=== PATIENT | male | born 1965 | race African-American/Black ===

== ENCOUNTER 2024-03-28 13:12 | Inpatient (IN) | payer OTHER ==
[2024-03-28 14:27] LABS: VENOUS BASE EXCESS -0.6 mmol/L (-2-2); VENOUS O2 SATURATION 76.5 % (70-80); VENOUS PCO2 43.7 mmHg (38-52); VENOUS PH 7.373 (7.310-7.410)
[2024-03-28 14:32] LABS: BASO % 1.1 % (0-2.0); EOS % 2.9 % (0-4.5); HEMOGLOBIN 15.5 GM/dL (11.7-16.9); LYMPH % 26.5 % (8-40); MCH 32.3 pg (25.7-33.7); MCHC 32.3 g/dl (32.0-35.9); MEAN CELL VOLUME 99.9 fl (80-96); NEUT % 55.5 % (42.8-82.8); PLATELET COUNT 207 10^3/uL (134-434); RBC 4.81 M/mm3 (4.00-5.60); RDW 13.8 % (11.9-15.9); WHITE BLOOD COUNT 6.7 K/mm3 (4.0-10.0)
[2024-03-28 14:38] LABS: INR 1.04 (0.83-1.09); PROTHROMBIN TIME (PATIENT) 11.7 SEC (9.7-13.0)
[2024-03-28 14:55] LABS: POTASSIUM 4.1 mmol/L (3.5-5.1)
[2024-03-28 14:57] LABS: CALCIUM 9.2 mg/dL (8.5-10.1)
[2024-03-28 14:58] LABS: ALBUMIN 3.1 g/dl (3.4-5.0); BLOOD UREA NITROGEN 31.1 mg/dL (7-18)
[2024-03-28 15:01] LABS: CREATININE 1.6 mg/dL (0.55-1.3)
[2024-03-28 15:02] LABS: BILIRUBIN,TOTAL 0.8 mg/dL (0.2-1); TOT PROT 6.2 g/dl (6.4-8.2)
[2024-03-28 15:06] LABS: N-TERMINAL BNP 5751.1 pg/ml (5-125)
[2024-03-28] MEDS: ASPIRIN 325 MG TABLET PO ONE (16:06)
[2024-03-28] MEDS ORDERED: ASPIRIN 81 MG CHEWABLE TABLETS ONE (16:06)
[2024-03-28] MEDS ORDERED: FUROSEMIDE 40 MG/4 ML INJECTABLE VIAL ONE (17:09)
[2024-03-28] MEDS: FUROSEMIDE 40 MG/4 ML INJECTABLE VIAL IVPUSH ONE (17:10)
[2024-03-28] MEDS ORDERED: CARVEDILOL 6.25 MG TABLET (FP) ONE (20:48)
[2024-03-28] MEDS: CARVEDILOL 12.5 MG TABLET (FP) PO ONE (20:51)
[2024-03-29] MEDS ORDERED: ALBUTEROL SO4 2.5/IPRATROPIUM 0.5 INH SOL 3 ML VIAL.NEB. NEB PRN (05:50)
[2024-03-29] MEDS ORDERED: HEPARIN NA (PORCINE) 5,000 UNITS/ML 1ML VIAL SQ SCH (06:00)
[2024-03-29] MEDS: HEPARIN NA (PORCINE) 5,000 UNITS/ML 1ML VIAL SQ SCH (06:22)
[2024-03-29 07:04] LABS: HEMATOCRIT 47.6 % (35.4-49); HEMOGLOBIN 15.3 GM/dL (11.7-16.9); MCH 32.3 pg (25.7-33.7); MCHC 32.2 g/dl (32.0-35.9); MEAN CELL VOLUME 100.4 fl (80-96); PLATELET COUNT 207 10^3/uL (134-434); RBC 4.74 M/mm3 (4.00-5.60); RDW 13.6 % (11.9-15.9); WHITE BLOOD COUNT 6.4 K/mm3 (4.0-10.0)
[2024-03-29 07:32] LABS: ALBUMIN 3.1 g/dl (3.4-5.0); BLOOD UREA NITROGEN 29.9 mg/dL (7-18); CALCIUM 8.6 mg/dL (8.5-10.1)
[2024-03-29 07:33] LABS: MAGNESIUM 2.2 mg/dL (1.8-2.4)
[2024-03-29 07:34] LABS: BILIRUBIN,TOTAL 0.7 mg/dL (0.2-1)
[2024-03-29 07:35] LABS: CREATININE 1.6 mg/dL (0.55-1.3); PHOSPHOROUS 5.4 mg/dL (2.5-4.9)
[2024-03-29 07:36] LABS: TOT PROT 6.3 g/dl (6.4-8.2)
[2024-03-29 08:56] LABS: COCAINE, UR NEGATIVE (NEGATIVE); URINE BARBITURATES NEGATIVE (NEGATIVE); URINE BENZODIAZEPINES NEGATIVE (NEGATIVE)
[2024-03-29 08:57] LABS: OPIATES, URI NEGATIVE (NEGATIVE)
[2024-03-29 09:10] LABS: PHENCYCLIDINE,URINE POSITIVE (NEGATIVE); URINE AMPHETAMINES NEGATIVE (NEGATIVE)
[2024-03-29 09:55] LABS: METHADONE, UR NEGATIVE (NEGATIVE)
[2024-03-29] MEDS ORDERED: ASPIRIN COATED 81 MG TABLET.EC PO SCH (10:00)
[2024-03-29] MEDS: predniSONE 20 MG TABLET (UD) PO SCH (10:19)
[2024-03-29] MEDS: ASPIRIN COATED 81 MG TABLET.EC PO SCH (10:19)
[2024-03-29] MEDS: TAMSULOSIN HCL 0.4 MG CAP PO SCH (10:19)
[2024-03-29] MEDS: SPIRONOLACTONE 25 MG TABLET PO SCH (10:19)
[2024-03-29] MEDS: NICOTINE 7 MG/24 HOURS TOPICAL PATCH TD SCH (10:19)
[2024-03-29] MEDS: SACUBITRIL/VALSARTAN 49 MG-51 MG TABLET PO SCH (10:20)
[2024-03-29] MEDS: BUDESONIDE/FORMETEROL FUMARATE 80/4.5 mcg INHALER IH SCH (10:20)
[2024-03-29] MEDS: FUROSEMIDE 40 MG/4 ML INJECTABLE VIAL IVPUSH SCH (10:20)
[2024-03-29 12:56] VITALS: BMI 31.0
[2024-03-29] MEDS: methylPREDNISolone NA SUCC 40 MG/1 ML VIAL IVPUSH SCH (13:12)
[2024-03-29] MEDS: FLUTICASONE/UMECLIDIN/VILANTER(100-62.5-25 TRELEGY ELLIPTA) INAHLER IH SCH (13:12)
[2024-03-29] MEDS: ENOXAPARIN NA (PORCINE) 100 MG/1 ML DISP.SYRIN SQ SCH (13:17)
[2024-03-29] MEDS: ATORVASTATIN CA 80 MG TABLET (FP) PO SCH (21:32)
[2024-03-30] MEDS: CARVEDILOL 25 MG TABLET (FP) PO SCH (09:23)
[2024-03-30] MEDS: FUROSEMIDE 40 MG TABLET (FP) PO SCH (09:34)
[2024-03-30 10:07] LABS: HEMATOCRIT 51.4 % (35.4-49); HEMOGLOBIN 16.3 GM/dL (11.7-16.9); MCH 31.8 pg (25.7-33.7); MCHC 31.8 g/dl (32.0-35.9); MEAN PLT VOLUME 8.8 fl (7.5-11.1); PLATELET COUNT 232 10^3/uL (134-434); RBC 5.14 M/mm3 (4.00-5.60); RDW 13.3 % (11.9-15.9); WHITE BLOOD COUNT 20.3 K/mm3 (4.0-10.0)
[2024-03-30] MEDS ORDERED: NICOTINE 7 MG/24 HOURS TOPICAL PATCH TD SCH (10:20)
[2024-03-30] MEDS: NICOTINE 14 MG/24 HOURS TOPICAL PATCH TD SCH (10:36)
[2024-03-30 10:37] LABS: POTASSIUM 4.4 mmol/L (3.5-5.1)
[2024-03-30 10:40] LABS: BLOOD UREA NITROGEN 26.2 mg/dL (7-18); CALCIUM 9.2 mg/dL (8.5-10.1); MAGNESIUM 2.2 mg/dL (1.8-2.4)
[2024-03-30 10:43] LABS: CREATININE 1.6 mg/dL (0.55-1.3); PHOSPHOROUS 2.8 mg/dL (2.5-4.9)
[2024-03-30 10:44] LABS: BILIRUBIN,TOTAL 0.7 mg/dL (0.2-1); TOT PROT 6.3 g/dl (6.4-8.2)
[2024-03-31 07:39] LABS: HEMATOCRIT 51.5 % (35.4-49); HEMOGLOBIN 16.2 GM/dL (11.7-16.9); MCH 31.6 pg (25.7-33.7); MCHC 31.5 g/dl (32.0-35.9); MEAN CELL VOLUME 100.5 fl (80-96); MEAN PLT VOLUME 9.9 fl (7.5-11.1); PLATELET COUNT 247 10^3/uL (134-434); RBC 5.13 M/mm3 (4.00-5.60); RDW 13.6 % (11.9-15.9); WHITE BLOOD COUNT 16.5 K/mm3 (4.0-10.0)
[2024-03-31 08:03] LABS: POTASSIUM 4.9 mmol/L (3.5-5.1)
[2024-03-31 08:23] LABS: ALBUMIN 3.1 g/dl (3.4-5.0); BLOOD UREA NITROGEN 31.9 mg/dL (7-18); CALCIUM 9.2 mg/dL (8.5-10.1); MAGNESIUM 2.2 mg/dL (1.8-2.4)
[2024-03-31 08:26] LABS: CREATININE 1.5 mg/dL (0.55-1.3); PHOSPHOROUS 2.4 mg/dL (2.5-4.9)
[2024-03-31 08:27] LABS: BILIRUBIN,TOTAL 0.4 mg/dL (0.2-1); TOT PROT 6.1 g/dl (6.4-8.2)
[2024-03-31] MEDS: NAPH,MB-DB/K PH,MBDB POWDER PACKET PO ONE (09:26)
[2024-04-01] MEDS: amLODIPine BESYLATE 5 MG TABLET (FP) PO SCH (10:46)
[2024-04-01] MEDS: ENOXAPARIN NA (PORCINE) 40 MG/0.4 ML DISP.SYRIN SQ SCH (18:37)
[2024-04-01] MEDS: ACETAMINOPHEN 500 MG TABLET (FP) PO ONE (21:43)
[2024-04-01 23:43] VITALS: RESP 18
[2024-04-02 06:50] VITALS: BP 140/106; TEMP 97.2
[2024-04-02 08:15] LABS: HEMATOCRIT 49.4 % (35.4-49); HEMOGLOBIN 16.3 GM/dL (11.7-16.9); MCH 32.7 pg (25.7-33.7); MCHC 32.9 g/dl (32.0-35.9); MEAN CELL VOLUME 99.4 fl (80-96); MEAN PLT VOLUME 9.6 fl (7.5-11.1); PLATELET COUNT 222 10^3/uL (134-434); RBC 4.97 M/mm3 (4.00-5.60); WHITE BLOOD COUNT 9.8 K/mm3 (4.0-10.0)
[2024-04-02 08:16] VITALS: PULSE 69
[2024-04-02 08:36] LABS: POTASSIUM 4.3 mmol/L (3.5-5.1)
[2024-04-02 08:45] LABS: CALCIUM 8.6 mg/dL (8.5-10.1)
[2024-04-02 08:46] LABS: ALBUMIN 2.8 g/dl (3.4-5.0); BLOOD UREA NITROGEN 29.3 mg/dL (7-18)
[2024-04-02 08:49] LABS: CREATININE 1.6 mg/dL (0.55-1.3)
[2024-04-02 08:50] LABS: BILIRUBIN,TOTAL 0.5 mg/dL (0.2-1)
[2024-04-02 08:51] LABS: TOT PROT 5.7 g/dl (6.4-8.2)
== END 2024-04-02 13:19 | disposition home or self-care (01) | DRG 194 ==
LOC: JER 13:12 → JERBED 20:56 → INTOOBSV 20:56 → J4W 23:31 → OBSVTOIN 03-30 02:21
PROVIDERS: ADMIT Student in an Organized Health Care Education/Training Program; ATTEND Internal Medicine
DX: I13.0 Hypertensive heart and chronic kidney disease with heart failure and stage 1 through stage 4 chronic kidney disease, or unspecified chronic kidney disease (principal); I50.23 Acute on chronic systolic (congestive) heart failure; J44.1 Chronic obstructive pulmonary disease with (acute) exacerbation; J43.9 Emphysema, unspecified; J84.10 Pulmonary fibrosis, unspecified; N18.9 Chronic kidney disease, unspecified; E78.5 Hyperlipidemia, unspecified; G47.33 Obstructive sleep apnea (adult) (pediatric); N40.0 Benign prostatic hyperplasia without lower urinary tract symptoms; I16.1 Hypertensive emergency; R59.0 Localized enlarged lymph nodes; R91.1 Solitary pulmonary nodule; E66.812 Obesity, class 2; Z68.31 Body mass index [BMI] 31.0-31.9, adult; F19.90 Other psychoactive substance use, unspecified, uncomplicated; R79.89 Other specified abnormal findings of blood chemistry
CPT/HCPCS: 0241U-QW; 36415; 71045-TC-FY; 71275-TC; 76775-TC; 80053; 80307; 82436; 82570; 82803; 82962; 83036; 83735; 83880; 83930; 83935; 84100; 84300; 84484; 84540; 85025; 85027; 85610; 85730; 93005; 93010; 93306-TC; 99285-25; G0378; J1644; Q9967